=== PATIENT | male | born 2000 | race Two or more races ===

== ENCOUNTER 2020-08-08 | Emergency (ER) | payer BC ==
[2020-08-08 00:08] VITALS: BP 112/62; PULSE 58; TEMP 99; BMI 22.2
[2020-08-08 02:02] LABS: BASO % 0.6 % (0-2.0); EOS % 1.2 % (0-4.5); HEMATOCRIT 44.7 % (35.4-49); HEMOGLOBIN 15.2 GM/dL (11.7-16.9); LYMPH % 39.9 % (8-40); MCH 28.3 pg (25.7-33.7); MEAN CELL VOLUME 83.1 fl (80-96); MEAN PLT VOLUME 8.2 fl (7.5-11.1); NEUT % 49.3 % (42.8-82.8); PLATELET COUNT 269 K/MM3 (134-434); RBC 5.38 M/mm3 (4.00-5.60); RDW 13.4 % (11.9-15.9); WHITE BLOOD COUNT 7.8 K/mm3 (4.0-10.0)
[2020-08-08 02:12] LABS: INR 1.03 (0.83-1.09); PROTHROMBIN TIME (PATIENT) 12.6 SEC (9.7-13.0)
[2020-08-08 02:14] LABS: CHLORIDE 105 mmol/L (98-107); SODIUM 139 mmol/L (136-145)
[2020-08-08 02:16] LABS: ALBUMIN 4.2 g/dl (3.4-5.0); ANION GAP 5 MMOL/L (8-16); CALCIUM 9.5 mg/dL (8.5-10.1); CO2 28 mmol/L (21-32)
[2020-08-08 02:17] LABS: GLUCOSE,RANDOM 73 mg/dL (74-106)
[2020-08-08 02:20] LABS: CREATININE 1.1 mg/dL (0.55-1.3); SGOT/AST 29 U/L (15-37); SGPT/ALT 19 U/L (13-61)
[2020-08-08 02:21] LABS: TOT PROT 7.8 g/dl (6.4-8.2)
[2020-08-08 02:22] LABS: ALK PHOS 109 U/L (45-117)
[2020-08-08 03:15] LABS: BILIRUBIN,TOTAL 0.4 mg/dL (0.2-1); BLOOD UREA NITROGEN 17.8 mg/dL (7-18)
== END 2020-08-08 02:47 | disposition home or self-care (01) ==
LOC: FER
DX: R07.89 Other chest pain (principal)
CPT/HCPCS: 36415; 80053; 82550; 82553; 84484; 85025; 85379; 85610; 93005; 99284-25

== ENCOUNTER 2021-02-25 23:59 | Emergency (ER) | payer OTHER, BC ==
[2021-02-26] MEDS ORDERED: ACETAMINOPHEN 325 MG TABLET (FP) PO ONE (00:33)
[2021-02-26 00:46] VITALS: BP 141/90; PULSE 91; TEMP 97.9; BMI 24.3
[2021-02-26] MEDS ORDERED: DIPHTH,PERTUSS(ACELL),TET 0.5 ML DISP.SYRIN IM ONE ×2 (00:53→03:23)
[2021-02-26] MEDS ORDERED: ACETAMINOPHEN 325 MG TABLET (FP) ONE (03:22)
[2021-02-26] MEDS ORDERED: BACITRACIN 15 GM TUBE TOPICAL OINTMENT ONE (04:25)
== END 2021-02-26 03:30 | disposition left against medical advice (07) ==
LOC: JER 23:59
PROC: 3E0234Z Introduction of Serum, Toxoid and Vaccine into Muscle, Percutaneous Approach (ICD-10-PCS; principal; 2021-02-25)
DX: S09.90XA Unspecified injury of head, initial encounter (principal); S60.211A Contusion of right wrist, initial encounter; S60.511A Abrasion of right hand, initial encounter; S80.211A Abrasion, right knee, initial encounter; S80.212A Abrasion, left knee, initial encounter; V28.0XXA Motorcycle driver injured in noncollision transport accident in nontraffic accident, initial encounter
CPT/HCPCS: 70450-TC; 70486-TC; 90715; 99284-25